=== PATIENT | female | born 1980 | race Caucasian/White ===

== ENCOUNTER 2019-03-16 11:18 | Inpatient (IN) | payer MEDICAID, OTHER ==
[~2019-03-16] VITALS: Ht 165.1 cm; Wt 122.9 kg
[2019-03-16] MEDS ORDERED: SODIUM CHLORIDE 0.9% 1,000 ML IV ONE ×2 (11:53)
[2019-03-16 11:54] LABS: Basophils # (auto) 0 uL; Basophils % (auto) 0.9 % (0.0-2.0); Eosinophils # (auto) 0 uL; Eosinophils % (auto) 0.1 % (0.0-7.0); Hemoglobin 14.5 g/dL (12.2-16.2); Lymphocytes # (auto) 1.2 uL; Lymphocytes % (auto) 23.5 % (10.0-50.0); Mean Corpuscular Hemoglobin 28.8 pg (28.0-32.0); Mean Corpuscular Hgb Conc. 33.7 g/dL (32.0-36.0); Mean Corpuscular Volume 85.4 fL (80.0-100.0); Monocytes # (auto) 0.4 uL; Monocytes % (auto) 7.7 % (0.0-12.0); Neutrophils # (auto) 3.5 uL; Neutrophils % (auto) 67.8 % (37.0-80.0); Nucleated Red Blood Cells % 0.2 %; Platelet Count (auto) 268 10^3/uL (140-450); Red Blood Cells 5.03 10^6/uL (4.0-5.20); Red Cell Distribution Width 13.8 % (11.8-14.3); White Blood Cell 5.2 10^3/uL (4.4-10.8)
[2019-03-16] MEDS ORDERED: KETOROLAC TROMETH 30 MG/ML 1ML VIAL IV ONE (12:00)
[2019-03-16 12:06] LABS: Urine Amorphous Crystal FEW /hpf (None Seen); Urine Bacteria FEW /hpf (None Seen); Urine Blood 3+ /uL (Negative); Urine Mucus FEW (None Seen); Urine WBC 29 /hpf (0 - 5)
[2019-03-16 12:23] LABS: Albumin 4.1 g/dL (3.4-5.0); BUN/Creatinine Ratio 13.4; Bilirubin, Total 1.4 mg/dL (0.2-1.0); Calcium 9.1 mg/dL (8.5-10.1); Total Protein 8.6 g/dL (6.4-8.2)
[2019-03-16] MEDS ORDERED: ONDANSETRON HCL 4 MG/2 ML VIAL IV PRN (18:45)
[2019-03-16] MEDS ORDERED: ACETAMINOPHEN 500 MG TAB PO PRN (18:45)
[2019-03-16] MEDS ORDERED: MORPHINE SULF INJ 2 MG/ML SYRINGE 1ML IV PRN (18:45)
--- NOTE | 2019-03-16 20:05 | NUR ---
MS admit from [facility]ON[facility],[place] admitted to [facility]. Patient oriented to Kari Wolf primary RN, unit, room, bed, and unit policies regarding patient care and visiting hours. Patient weighed by bed scale and encouraged to call if they need something. All questions and concerns addressed, patient verbalized understanding. Instructed patient on POC, fall precautions and to call for assistance as needed. Patient verbalized understanding. Fall precautions in place with bed in lowest locked position with call light within reach.
[2019-03-16] MEDS: HYDROcodone-ACET 5/325MG TAB PO PRN (20:39)
[2019-03-16 20:41] VITALS: BP 129/74
[2019-03-16] MEDS: SODIUM CHLORIDE 0.9% 1,000 ML IV SCH (22:45)
--- NOTE | 2019-03-17 01:11 | NUR ---
Patient resting in bed with even and unlabored respirations, no distress noted. Fall precautions in place with call light within reach. Will continue to monitor q1hr & PRN.
[2019-03-17 05:11] LABS: Basophils # (auto) 0 uL; Basophils % (auto) 0.5 % (0.0-2.0); Eosinophils # (auto) 0 uL; Eosinophils % (auto) 0.4 % (0.0-7.0); Hematocrit 36.2 % (36.0-46.0); Hemoglobin 12.4 g/dL (12.2-16.2); Lymphocytes # (auto) 1.2 uL; Lymphocytes % (auto) 26.4 % (10.0-50.0); Mean Corpuscular Hemoglobin 29.4 pg (28.0-32.0); Mean Corpuscular Hgb Conc. 34.1 g/dL (32.0-36.0); Mean Corpuscular Volume 86.2 fL (80.0-100.0); Monocytes # (auto) 0.5 uL; Monocytes % (auto) 10.4 % (0.0-12.0); Neutrophils # (auto) 2.7 uL; Neutrophils % (auto) 62.3 % (37.0-80.0); Platelet Count (auto) 206 10^3/uL (140-450); Red Cell Distribution Width 13.5 % (11.8-14.3); White Blood Cell 4.4 10^3/uL (4.4-10.8)
[2019-03-17 05:23] VITALS: BP 96/61
[2019-03-17 05:30] LABS: Calcium 8.3 mg/dL (8.5-10.1)
--- NOTE | 2019-03-17 06:49 | NUR ---
Closing note patient resting in bed with even and unlabored respirations, no distress noted. Fall precautions in place with bed in lowest locked position with call light within reach.
[2019-03-17 06:54] LABS: BUN/Creatinine Ratio 17.7
[2019-03-17] MEDS: SODIUM CHLORIDE 0.9% 1,000 ML IV SCH ×3 (07:02→19:14)
--- NOTE | 2019-03-17 07:27 | NUR ---
Care endorsed to REMA Durant.
[2019-03-17] MEDS: FAMOTIDINE 20 MG TAB PO SCH (09:10)
[2019-03-17] MEDS: cefTRIAXone 1GM/50ML D5W 50 ML IV SCH (09:11)
[2019-03-17] MEDS: HYDROcodone-ACET 5/325MG TAB PO PRN ×3 (09:11→21:21)
--- NOTE | 2019-03-17 09:18 | NUR ---
PASSED MORNING MEDICATIONS, PT TOLERATED WELL. PT AWAKE, ALERT, ORIENTEDx4. IV INFUSING WELL. BED LOCKED AND IN LOWEST POSITION, CALL LIGHT WITHIN REACH. WILL CONTINUE TO MONITOR.
[2019-03-17 09:31] VITALS: BP 108/57
[2019-03-17] MEDS ORDERED: INFLUENZA QUAD 2019-2020 0.5ml SYRG IM ONE (10:00)
[2019-03-17 14:08] VITALS: BP 103/62
[2019-03-17 16:21] VITALS: BP 103/66
[2019-03-17 22:00] VITALS: BP 152/78
[2019-03-18] MEDS: SODIUM CHLORIDE 0.9% 1,000 ML IV SCH ×2 (04:43→09:02)
[2019-03-18] MEDS: HYDROcodone-ACET 5/325MG TAB PO PRN (05:28)
[2019-03-18 06:12] VITALS: BP 116/81
[2019-03-18 06:29] LABS: Basophils # (auto) 0 uL; Basophils % (auto) 1.1 % (0.0-2.0); Eosinophils # (auto) 0 uL; Eosinophils % (auto) 0.4 % (0.0-7.0); Hematocrit 34.7 % (36.0-46.0); Hemoglobin 11.8 g/dL (12.2-16.2); Lymphocytes # (auto) 0.9 uL; Lymphocytes % (auto) 30.3 % (10.0-50.0); Mean Corpuscular Hemoglobin 29.7 pg (28.0-32.0); Mean Corpuscular Hgb Conc. 34.1 g/dL (32.0-36.0); Monocytes # (auto) 0.3 uL; Monocytes % (auto) 11.5 % (0.0-12.0); Neutrophils # (auto) 1.7 uL; Neutrophils % (auto) 56.7 % (37.0-80.0); Nucleated Red Blood Cells % 0.1 %; Platelet Count (auto) 187 10^3/uL (140-450); Red Blood Cells 3.99 10^6/uL (4.0-5.20); Red Cell Distribution Width 13.4 % (11.8-14.3); White Blood Cell 2.9 10^3/uL (4.4-10.8)
[2019-03-18 06:44] LABS: BUN/Creatinine Ratio 13.2; Calcium 7.7 mg/dL (8.5-10.1); Potassium 3.8 mmol/L (3.5-5.1)
[2019-03-18] MEDS: cefTRIAXone 1GM/50ML D5W 50 ML IV SCH (09:02)
[2019-03-18] MEDS: FAMOTIDINE 20 MG TAB PO SCH (09:02)
[2019-03-18 09:17] VITALS: BP 109/76
[2019-03-18 12:46] VITALS: BP 109/76
--- NOTE | 2019-03-18 13:25 | NUR ---
DISCHARGE INSTRUCTIONS PROVIDED TO PT. PT VERBALIZED UNDERSTANDING FOR FOLLOW UP APPOINTMENT WITH PCP, CONTACT RESOURCE INFORMATION PROVIDED. VERBALIZED UNDERSTANDING FOR PRESCRIPTION ORDERS. IV CATHETER DC'D, CATHETER INTACT, NO PHLEBITIS. EDUCATIONAL MATERIAL PROVIDED, ALL QUESTIONS AND CONCERNS ADDRESSED. NO S/S OF DISTRESS. PT SAFELY ESCORTED OUT OF UNIT VIA WHEELCHAIR.
== END 2019-03-18 13:20 | disposition home or self-care (01) | DRG 463 ==
LOC: ER 11:18 → OVERFLOW 11:19 → CENTRAL 20:05
PROVIDERS: ADMIT Nurse Practitioner Acute Care; ATTEND Internal Medicine
DX: N30.00 Acute cystitis without hematuria (principal); E66.01 Morbid (severe) obesity due to excess calories; Z68.42 Body mass index [BMI] 45.0-49.9, adult; Z28.21 Immunization not carried out because of patient refusal; Z72.0 Tobacco use; Z85.528 Personal history of other malignant neoplasm of kidney; Z90.5 Acquired absence of kidney; Z98.51 Tubal ligation status
CPT/HCPCS: 36415; 74176; 80048; 80053; 81001; 85025; 87086; G0378; J0696; J1885

== ENCOUNTER 2019-10-12 17:51 | Emergency (ER) | payer MEDICAID, OTHER ==
[~2019-10-12] VITALS: Ht 165.1 cm; Wt 117.9 kg
[2019-10-12 18:46] VITALS: BP 123/79
[2019-10-12] MEDS ORDERED: KETOROLAC TROMETH 60MG/2ML VIAL IM ONE (20:15)
== END 2019-10-12 22:42 | disposition home or self-care (01) ==
LOC: ER 17:51
DX: L02.414 Cutaneous abscess of left upper limb (principal); I10 Essential (primary) hypertension
CPT/HCPCS: 10060; 76881; 99284; J1885

== ENCOUNTER 2019-10-14 17:55 | Emergency (ER) | payer OTHER ==
[~2019-10-14] VITALS: Ht 165.1 cm; Wt 117.9 kg
[2019-10-14 20:26] VITALS: BP 123/91
== END 2019-10-14 20:59 | disposition home or self-care (01) ==
LOC: ER 17:55
DX: Z48.01 Encounter for change or removal of surgical wound dressing (principal)
CPT/HCPCS: 99282; C1887

== ENCOUNTER 2019-10-17 09:46 | Emergency (ER) | payer OTHER ==
[~2019-10-17] VITALS: Ht 165.1 cm; Wt 117.9 kg
[2019-10-17 10:57] VITALS: BP 106/60
[2019-10-17] MEDS ORDERED: BACITRACIN TOP OINT 1 UD PKG TOP ONE (12:30)
== END 2019-10-17 12:26 | disposition home or self-care (01) ==
LOC: ER 09:48
DX: Z48.01 Encounter for change or removal of surgical wound dressing (principal); Z71.51 Drug abuse counseling and surveillance of drug abuser